=== PATIENT | male | born 1945 | race Caucasian/White ===

== ENCOUNTER 2019-04-25 09:26 | Day surgery (SDC) | payer OTHER, BC ==
[2019-04-24 14:46] VITALS: BMI 29.8
[2019-04-25 10:52] VITALS: TEMP 98
[2019-04-25 14:18] VITALS: BP 118/63; PULSE 54
== END 2019-04-25 11:30 | disposition home or self-care (01) ==
LOC: JASU-ENDO 09:26
PROVIDERS: ATTEND Internal Medicine Gastroenterology
PROC: 0DJD8ZZ Inspection of Lower Intestinal Tract, Via Natural or Artificial Opening Endoscopic (ICD-10-PCS; principal; 2019-04-25 10:30)
DX: Z86.010 Personal history of colon polyps (principal); K57.30 Diverticulosis of large intestine without perforation or abscess without bleeding; N40.0 Benign prostatic hyperplasia without lower urinary tract symptoms; J45.909 Unspecified asthma, uncomplicated; G47.33 Obstructive sleep apnea (adult) (pediatric); G25.81 Restless legs syndrome; Z99.89 Dependence on other enabling machines and devices

== ENCOUNTER 2023-09-15 05:15 | Day surgery (SDC) | payer OTHER, BC ==
[2023-09-09 11:02] VITALS: BMI 25.8
[~2023-09-15 05:15] MED LIST: ACETAMINOPHEN 325 MG TABLET (FP) PO PRN; CYCLOPENTOLATE HCL 1% OPHTH SOLN 2 ML BOTTLE OP SCH; KETOROLAC TROMETHAMINE 0.5% EYE DROP 1 DROP DROPS OP SCH; OFLOXACIN 0.3% OPHTHALMIC SOLUTION 5 ML BOTTLE OP SCH; PHENYLEPHRINE 2.5% OPHTH SOLN 15 ML BOTTLE OP SCH; TROPICAMIDE 1% OPHTH SOLN 15 ML BOTTLE OP SCH
[2023-09-15] MEDS ORDERED: TETRACAINE 0.5% OPHTH SOLN 2 ML BOTTLE ONE (07:29)
[2023-09-15] MEDS ORDERED: PHENYLEPHRINE/KETOROLAC 4 ML VIAL IO ONE (07:29)
[2023-09-15] MEDS ORDERED: POVIDONE-IODINE 5% OPHTHALMIC PREP 30 ML SOLUTION ONE (07:29)
[2023-09-15] MEDS ORDERED: BSS (NA/CA/MG/K) BALANCED SALT SOLUTION OPHTH SOLN 15 ML BOTTLE ONE (07:29)
[2023-09-15] MEDS ORDERED: LIDOCAINE HCL/PF 1% SDV 5ML VIAL ONE (07:29)
[2023-09-15] MEDS ORDERED: KETOROLAC TROMETHAMINE 0.5% EYE DROP 1 DROP DROPS ONE (08:07)
[2023-09-15] MEDS ORDERED: PHENYLEPHRINE 2.5% OPTHALMIC DROP 2ML BOTTLE ONE (08:07)
[2023-09-15] MEDS ORDERED: CYCLOPENTOLATE HCL 1% OPHTH SOLN 2 ML BOTTLE ONE (08:07)
[2023-09-15] MEDS ORDERED: TROPICAMIDE 1% OPHTH SOLN 15 ML BOTTLE ONE (08:08)
[2023-09-15] MEDS ORDERED: OFLOXACIN 0.3% OPHTHALMIC SOLUTION 5 ML BOTTLE ONE (08:08)
[2023-09-15] MEDS: PHENYLEPHRINE 2.5% OPHTH SOLN 15 ML BOTTLE OS ONE ×3 (08:20→08:30)
[2023-09-15] MEDS: CYCLOPENTOLATE HCL 1% OPHTH SOLN 2 ML BOTTLE OS ONE ×3 (08:20→08:30)
[2023-09-15] MEDS: TROPICAMIDE 1% OPHTH SOLN 15 ML BOTTLE OS ONE ×3 (08:20→08:30)
[2023-09-15] MEDS: KETOROLAC TROMETHAMINE 0.5% EYE DROP 1 DROP DROPS OS ONE ×3 (08:20→08:30)
[2023-09-15] MEDS: OFLOXACIN 0.3% OPHTHALMIC SOLUTION 5 ML BOTTLE OS ONE ×3 (08:20→08:30)
[2023-09-15] MEDS ORDERED: MIDAZOLAM HCL 2 MG/2 ML SINGLE DOSE VIAL ONE (09:39)
[2023-09-15] MEDS: TETRACAINE 0.5% OPHTH SOLN 2 ML BOTTLE OS ONE (09:56)
[2023-09-15] MEDS: POVIDONE-IODINE 5% OPHTHALMIC PREP 30 ML SOLUTION OS ONE (09:59)
[2023-09-15] MEDS: LIDOCAINE HCL 1% PRESERVATIVE FREE - 30ML VIAL IO ONE ×2 (10:04)
[2023-09-15] MEDS: BSS (NA/CA/MG/K) BALANCED SALT SOLUTION OPHTH SOLN 15 ML BOTTLE OS ONE ×2 (10:07)
[2023-09-15] MEDS: CHONDROITIN SU A/HYALUR SOD 1 KIT IO ONE ×2 (10:12)
[2023-09-15] MEDS: PHENYLEPHRINE/KETOROLAC 4 ML VIAL IO ONE ×2 (10:13)
[2023-09-15 11:22] VITALS: TEMP 98.3
[2023-09-15 11:23] VITALS: BP 118/70; PULSE 60; RESP 20
== END 2023-09-15 11:30 | disposition home or self-care (01) ==
LOC: JASU-SURG 05:15
PROVIDERS: ATTEND Ophthalmology
PROC: 08RK3JZ Replacement of Left Lens with Synthetic Substitute, Percutaneous Approach (ICD-10-PCS; principal; 2023-09-15 10:00)
DX: H26.9 Unspecified cataract (principal)
CPT/HCPCS: J1097; V2632

== ENCOUNTER 2023-09-29 04:38 | Day surgery (SDC) | payer OTHER, BC ==
[2023-09-28 09:10] VITALS: BMI 26.6
[2023-09-29] MEDS ORDERED: BSS (NA/CA/MG/K) BALANCED SALT SOLUTION OPHTH SOLN 15 ML BOTTLE ONE (07:18)
[2023-09-29] MEDS ORDERED: TETRACAINE 0.5% OPHTH SOLN 2 ML BOTTLE ONE (07:18)
[2023-09-29] MEDS ORDERED: LIDOCAINE HCL/PF 1% SDV 5ML VIAL ONE (07:18)
[2023-09-29] MEDS ORDERED: POVIDONE-IODINE 5% OPHTHALMIC PREP 30 ML SOLUTION ONE (07:18)
[2023-09-29] MEDS ORDERED: EPINEPHrine/PF 1 MG/1 ML (1:1,000) AMPULE ONE (07:18)
[2023-09-29] MEDS ORDERED: TROPICAMIDE 1% OPHTH SOLN 15 ML BOTTLE ONE (07:26)
[2023-09-29] MEDS ORDERED: CYCLOPENTOLATE HCL 1% OPHTH SOLN 2 ML BOTTLE ONE (07:26)
[2023-09-29] MEDS ORDERED: KETOROLAC TROMETHAMINE 0.5% EYE DROP 1 DROP DROPS ONE (07:26)
[2023-09-29] MEDS ORDERED: OFLOXACIN 0.3% OPHTHALMIC SOLUTION 5 ML BOTTLE ONE (07:26)
[2023-09-29] MEDS ORDERED: PHENYLEPHRINE 2.5% OPTHALMIC DROP 2ML BOTTLE ONE (07:28)
[2023-09-29] MEDS: TROPICAMIDE 1% OPHTH SOLN 15 ML BOTTLE OD ONE ×3 (08:05→08:25)
[2023-09-29] MEDS: CYCLOPENTOLATE HCL 1% OPHTH SOLN 2 ML BOTTLE OD ONE ×2 (08:05→08:25)
[2023-09-29] MEDS: PHENYLEPHRINE 2.5% OPHTH SOLN 15 ML BOTTLE OD ONE ×3 (08:05→08:25)
[2023-09-29] MEDS: KETOROLAC TROMETHAMINE 0.5% EYE DROP 1 DROP DROPS OD ONE ×3 (08:05→08:25)
[2023-09-29] MEDS: CYCLOPENTOLATE 2% OPHTH SOLN 2 ML BOTTLE OD ONE (08:15)
[2023-09-29] MEDS: OFLOXACIN 0.3% OPHTHALMIC SOLUTION 5 ML BOTTLE OD ONE ×2 (08:15→08:25)
[2023-09-29] MEDS ORDERED: PHENYLEPHRINE/KETOROLAC 4 ML VIAL IO ONE (08:40)
[2023-09-29] MEDS ORDERED: ONDANSETRON 4 MG/2 ML VIAL ONE (08:48)
[2023-09-29] MEDS ORDERED: MIDAZOLAM HCL 2 MG/2 ML SINGLE DOSE VIAL ONE (08:48)
[2023-09-29] MEDS: TETRACAINE 0.5% OPHTH SOLN 2 ML BOTTLE OD ONE (08:54)
[2023-09-29] MEDS: POVIDONE-IODINE 5% OPHTHALMIC PREP 30 ML SOLUTION OD ONE (08:55)
[2023-09-29] MEDS: LIDOCAINE HCL 1% PRESERVATIVE FREE - 30ML VIAL IJ ONE ×2 (09:01)
[2023-09-29] MEDS: BSS (NA/CA/MG/K) BALANCED SALT SOLUTION OPHTH SOLN 15 ML BOTTLE OD ONE ×2 (09:05)
[2023-09-29] MEDS: CHONDROITIN SU A/HYALUR SOD 1 KIT IO ONE ×2 (09:07)
[2023-09-29] MEDS: PHENYLEPHRINE/KETOROLAC 4 ML VIAL IO ONE ×2 (09:11)
[2023-09-29 09:37] VITALS: BP 123/68; PULSE 55; RESP 18; TEMP 98.4
== END 2023-09-29 10:50 | disposition home or self-care (01) ==
LOC: JASU-SURG 04:38
PROVIDERS: ATTEND Ophthalmology
PROC: 08RJ3JZ Replacement of Right Lens with Synthetic Substitute, Percutaneous Approach (ICD-10-PCS; principal; 2023-09-29 09:00)
DX: H26.9 Unspecified cataract (principal)
CPT/HCPCS: J1097; V2632

== ENCOUNTER 2025-01-02 07:28 | Day surgery (SDC) | payer OTHER, BC ==
[2024-12-28 11:01] VITALS: BMI 26.6
[2025-01-02] MEDS ORDERED: LIDOCAINE HCL/PF 2% SDV 5ML VIAL ONE (08:04)
[2025-01-02] MEDS ORDERED: MIDAZOLAM HCL 2 MG/2 ML SINGLE DOSE VIAL ONE (08:05)
[2025-01-02] MEDS ORDERED: ROCURONIUM BROMIDE 50 MG/5 ML SYRINGE ONE (08:05)
[2025-01-02] MEDS ORDERED: PROPOFOL 20 ML ONE (08:05)
[2025-01-02] MEDS: BUPIVACAINE HCL/PF 0.25% (2.5MG/ML) 10 ML VIAL IJ ONE (08:50)
[2025-01-02] MEDS: BUPIVACAINE HCL/PF 2.5 MG/ML - 30 ML VIAL IJ ONE (08:50)
[2025-01-02] MEDS ORDERED: ONDANSETRON 4 MG/2 ML VIAL ONE (10:03)
[2025-01-02] MEDS ORDERED: SUGAMMADEX SODIUM 200 MG/2 ML VIAL ONE (10:03)
[2025-01-02] MEDS ORDERED: ONDANSETRON 4 MG/2 ML VIAL IVPUSH PRN (10:18)
[2025-01-02] MEDS: LACTATED RINGERS SOLUTION 1,000 ML IV SCH (10:51)
[2025-01-02] MEDS: ACETAMINOPHEN 1000 MG/100 ML BAG IVPB ONE (10:52)
[2025-01-02 12:58] VITALS: RESP 16; TEMP 97.1
[2025-01-02 14:17] VITALS: BP 120/63; PULSE 61
== END 2025-01-02 14:38 | disposition home or self-care (01) ==
LOC: JASU-SURG 07:28
PROVIDERS: ATTEND Surgery
PROC: 0DQV4ZZ Repair Mesentery, Percutaneous Endoscopic Approach (ICD-10-PCS; principal; 2025-01-02 08:00)
DX: K40.30 Unilateral inguinal hernia, with obstruction, without gangrene, not specified as recurrent (principal)
CPT/HCPCS: 86850; 86900; 86901; 94760; C1781